=== PATIENT | male | born 1990 | race Caucasian/White ===

== ENCOUNTER → 2025-07-14 16:13 | Outpatient (CLI) | payer OTHER, SELFPAY ==
--- NOTE | 2025-07-14 16:16 | DI.RAD.S_ITS ---
PROCEDURE: XR KNEE LT 3V INDICATIONS: Eval for edema, DJD, avulsion/fracture TECHNIQUE: 3 views of the knee were acquired. COMPARISON: None. FINDINGS: Bones: No fractures or dislocations. No suspicious bony lesions. Soft tissues: No joint effusion. No suspicious soft tissue calcifications. IMPRESSION: No acute bony abnormality or significant effusion. If symptoms persist with conservative management, consider cross-sectional imaging such as CT or MRI. Approved by: Gala Fermin M.D.,Ph.D. on 07/14/2025 at 19:37
== END ==
PROVIDERS: Referring Provider Chiropractor; Visit Provider Chiropractor
DX: S83.92XA Sprain of unspecified site of left knee, initial encounter (principal); X58.XXXA Exposure to other specified factors, initial encounter
CPT/HCPCS: 73562